=== PATIENT | male | born 1965 | race Caucasian/White ===

== ENCOUNTER 2020-07-29 16:15 | Emergency (ER) | payer OTHER ==
[~2020-07-29] VITALS: Ht 185.4 cm; Wt 80.1 kg
--- NOTE | 2020-07-29 16:25 | PHYS DOC ---
Past History Smoking: Cigarettes Alcohol Use: Heavy Drug Use: Amphetamine, Marijuana Adult General Chief Complaint Chief Complaint: NEURO SYMPTOMS/DEFICITS HPI HPI Patient is a 55-year-old male presenting via local [place] as transfer for stroke. Patient's last known normal was 1510 hrs. he has history of hepatitis C with unknown status, CHF with unknown last ejection fraction and bipolar. Was at convenience store [place] [address] [place] when he had a witnessed episode of "becoming weak". Patient without trauma, known inciting event or ingestion became aphasic with subsequent right upper and lower extremity motor weakness. Patient was subsequently transported to local [place] hospital for evaluation and had comprehensive work-up. Shortened NIH stroke scale 14, CT head negative for hemorrhage, creatinine 1.6, GFR 40, hemoglobin 14, white blood cell count 8.7 and troponin 0.04. Patient arrives and unable to provide history due to ongoing aphasia and right upper and right lower extremity motor weakness. Review of Systems Review of Systems Unable to accept because patient aphasic Allergies Allergies Allergies Coded Allergies Type Severity Reaction Last Updated Verified No Known Drug Allergies 07/29/20 No Physical Exam Physical Exam Constitutional: Poor overall hygiene, no acute distress, is aphasic with no obvious and/or purposeful movements of right upper or lower extremity noted HENT: Normocephalic, atraumatic, bilateral external ears normal, oropharynx dry with poor dentition, no oral exudates, nose normal. Eyes: PERRLA, EOMI, conjunctiva normal, no discharge. Neck: Normal range of motion, no tenderness, supple, no stridor. Cardiovascular: Heart rate regular, sinus rhythm, no murmurs rubs or gallops Lungs & Thorax: No obvious respiratory distress, patient slightly tachypneic with respirations 24 without accessory muscle usage, clear to auscultation bilaterally Abdomen: Bowel sounds normal, soft, no tenderness, no masses, no pulsatile masses. Nonsurgical abdomen, no peritoneal signs Skin: Warm, dry, no erythema, no rash. Back: No tenderness, no CVA tenderness. Extremities: No tenderness, no cyanosis, no clubbing, no edema. No purposeful movements of right upper or lower extremities Neurologic: Alert but aphasic and unable to answer orientation questions, uncooperative with cranial nerve examinations but does have spontaneous extraocular movements, patient has decreased sensory awareness of right upper and right lower extremity, there is no purposeful motor function of right upper and lower extremities, patient has downgoing toes to left lower extremity but right upper word toes of right lower extremity, gross left lower further facial droop and right upper and lower extremity motor and sensory function loss [facility], limited NIH stroke scale remains 14 and unable to perform rest due to patient cooperation Psychologic: Unable to fully assess due to patient presentation Current Patient Data Vital Signs Vital Signs Date Time Temp Pulse Resp B/P (MAP) Pulse Ox O2 Delivery O2 Flow Rate FiO2 07/29/20 16:51 98.1 78 22 135/100 (112) 99 07/29/20 16:52 Room Air Vital Signs Date Time Temp Pulse Resp B/P (MAP) Pulse Ox O2 Delivery O2 Flow Rate FiO2 07/29/20 16:52 98.1 78 26 135/100 (112) 99 Room Air Lab Results Laboratory Tests Test 07/29/20 16:28 07/29/20 16:38 Urine Opiates Screen Neg Urine Methadone Screen Neg Urine Barbiturates Neg Urine Phencyclidine Screen Neg Urine Amphetamine/Methamphetamine Pos Urine Benzodiazepines Screen Neg Urine Cocaine Screen Neg Urine Cannabinoids Screen Pos Urine Ethyl Alcohol Neg White Blood Count 7.8 x10^3/uL Red Blood Count 4.38 x10^6/uL Hemoglobin 13.1 g/dL Hematocrit 40.1 % Mean Corpuscular Volume 92 fL Mean Corpuscular Hemoglobin 30 pg Mean Corpuscular Hemoglobin Concent 33 g/dL Red Cell Distribution Width 14.7 % Platelet Count 264 x10^3/uL Neutrophils (%) (Auto) 71 % Lymphocytes (%) (Auto) 19 % Monocytes (%) (Auto) 7 % Eosinophils (%) (Auto) 2 % Basophils (%) (Auto) 1 % Neutrophils # (Auto) 5.5 x10^3uL Lymphocytes # (Auto) 1.5 x10^3/uL Monocytes # (Auto) 0.6 x10^3/uL Eosinophils # (Auto) 0.1 x10^3/uL Basophils # (Auto) 0.1 x10^3/uL Sodium Level 140 mmol/L Potassium Level 4.9 mmol/L Chloride Level 106 mmol/L Carbon Dioxide Level 24 mmol/L Anion Gap 10 Blood Urea Nitrogen 41 mg/dL Creatinine 1.5 mg/dL Estimated GFR (Cockcroft-Gault) 49.0 BUN/Creatinine Ratio 27 Glucose Level 98 mg/dL Calcium Level 8.9 mg/dL Total Bilirubin 0.6 mg/dL Aspartate Amino Transf (AST/SGOT) 41 U/L Alanine Aminotransferase (ALT/SGPT) 49 U/L Alkaline Phosphatase 105 U/L Troponin I Quantitative 0.231 ng/mL Total Protein 6.4 g/dL Albumin 2.9 g/dL Albumin/Globulin Ratio 0.8 Current Medications Medications (Trade) Dose Ordered Sig/Akila Route PRN Reason Start Time Stop Time Status Last Admin Dose Admin Iohexol (Omnipaque 350 Mg/ml) 100 ml 1X ONCE IV 07/29/20 16:45 07/29/20 16:46 DC Naloxone HCl (Narcan) 0.4 mg STK-MED ONCE .ROUTE 07/29/20 16:40 07/29/20 16:40 DC Alteplase, Recombinant 7.2 ml @ 432 mls/hr 1X ONCE IV 07/29/20 17:00 07/29/20 17:15 DC 07/29/20 17:08 Alteplase, Recombinant 64.9 ml @ 64.9 mls/hr 1X ONCE IV 07/29/20 17:00 07/29/20 17:59 07/29/20 17:07 Sodium Chloride 50 ml @ 0 mls/hr 1X ONCE IV 07/29/20 17:00 07/29/20 17:15 DC Alteplase, Recombinant 100 ml @ As Directed STK-MED ONCE IV 07/29/20 16:59 07/29/20 16:59 DC EKG EKG EKG ordered and interpreted by myself at 1632 hrs. as sinus rhythm at 64 bpm, prolonged QRS at 128 otherwise unremarkable intervals, left axis deviation, T w ave inversion noted in lead aVL otherwise unremarkable, no prior to compare to Repeat EKG ordered and obtained at 1726 hrs. showing sinus rhythm at 73 bpm, prolonged QRS at 128, left axis deviation, T wave inversions in aVL otherwise no STEMI, no ischemic findings Radiology/Procedures Radiology/Procedures Study: XR CHEST 1V Indication: Fluid status. Comparison: None. Findings: The cardiomediastinal silhouette is enlarged. Mildly plethoric central vasculature and prominence of the interstitium. No layering effusion or pneumothorax. No lobar consolidation. Impression: Possible mild interstitial edema but there is no layering effusion. Electronically signed by: ORTIZ CEDEÑO MD (07/29/2020 4:54 PM) [facility] //////////////// CT scan of the head without contrast 08/16/2020 Clinical History: Right-sided weakness. Code stroke. Technique: Unenhanced, contiguous, 5 mm axial sections were obtained through the head. One or more of the following individualized dose reduction techniques were utilized for this study: 1. Automated exposure control. 2. Adjustment of the mA and/or kV according to patient size. 3. Use of iterative reconstruction technique. Findings: The ventricles and sulci are within normal limits in size and configuration. No acute parenchymal abnormality is seen. No extra-axial fluid collection is noted. No skull fracture is seen. Impression: No acute intracranial abnormality is seen. //////////////// Heart Score C/O Chest Pain: N/A HEART Score for Chest Pain: HEART Score for Chest Pain Response (Comments) Value History Moderately Suspicious 1 ECG Nonspecific Repolarizatio 1 Age >45 - < 65 1 Risk Factors 1 or 2 Risk Factors 1 Troponin >1-<3x Normal Limit 1 Total 5 Risk Factors: Risk Factors: DM, Current or recent (<one month) smoker, HTN, HLP, family history of CAD, obesity. Risk Scores: Risk Factors: DM, Current or recent (<one month) smoker, HTN, HLP, family history of CAD, obesity. Course & Med Decision Making Course & Med Decision Making Hemodynamically stable on arrival with unremarkable POC glucose. Patient immediately sent to CT bay and evaluated by myself with NIH being performed and grossly elevated due to patient noncompliance/unable to perform some activities CT head without hemorrhage, CTA showing left ICA occlusion and other concerning abnormalities. There was concern during imaging that patient might be under influence of illicit drugs due to marijuana and a blue pill being found on his person, 0.2 mg Narcan administered without improvement Patient brought back to ER bay for further evaluation. [facility] with history of polysubstance abuse such as cocaine and amphetamines. Patient case reviewed after laboratory work from outlying facility reviewed and imaging results today, decision was made to administer TPA with bolus adm inistration at 1706 hours and subsequent drip started at 1707 hrs. [facility] stroke hotline contacted and case reviewed with on-call neurologist. He agreed need for transfer for higher acuity of care and agreed to work-up so far. [facility] services were arranged, they arrived at our facility at 1727 hrs. with depart time of 1737 Patient's father is the only listed contact on file at [phone], he was contacted and case reviewed. He is aware of patient's condition, diagnosis and transfer to [facility] Critical Care Time This patient required critical care. Due to the fact that the patient required a significant amount of one on one physician - patient contact time, ordering and review of studies, arranging urgent treatment with development of a management plan, evaluation of patients response to treatment with frequent reassessments, and discussions with other providers this patient required 60 minutes of critical care time. Critical care time was indicated due to the inherent instability and/or potential for instability in this patient. The critical care time that is allocated to this patient is above and beyond any time spent on any other billable procedures performed on this patient. Dragon Disclaimer Dragon Disclaimer This electronic medical record was generated, in whole or in part, using a voice recognition dictation system. Departure Departure: Impression: Primary Impression: Ischemic stroke Additional Impressions: Methamphetamine abuse Marijuana abuse Elevated troponin Disposition: 02 [facility] ([facility]) Admitting Physician: Other (dr edwards) Condition: GUARDED Referrals: PCP,NO (PCP) Problem Qualifiers JAZMYNE PINO DO Jul 29, 2020 16:25
[2020-07-29] MEDS ORDERED: NALOXONE 0.4 MG/ML VIAL. ONE (16:40)
--- NOTE | 2020-07-29 16:41 | RAD ---
CT scan of the head without contrast 08/16/2020 Clinical History: Right-sided weakness. Code stroke. Technique: Unenhanced, contiguous, 5 mm axial sections were obtained through the head. One or more of the following individualized dose reduction techniques were utilized for this study: 1. Automated exposure control. 2. Adjustment of the mA and/or kV according to patient size. 3. Use of iterative reconstruction technique. Findings: The ventricles and sulci are within normal limits in size and configuration. No acute paren chymal abnormality is seen. No extra-axial fluid collection is noted. No skull fracture is seen. Impression: No acute intracranial abnormality is seen. This result was discussed with Dr. Mo. FOR INTERNAL CODING PURPOSES RESULT CODE: (C) Electronically signed by: Charlie Felix MD (07/29/2020 4:38 PM) [id number]
[2020-07-29] MEDS ORDERED: IOHEXOL 350 MG/ML 100 ML VIAL. IV ONE (16:45)
--- NOTE | 2020-07-29 16:51 | EKG ---
[address] [address] Test Date: 2020-07-29 Test Time: 16:28:40 Pat Name: KYRIE DENNISON Department: Room: Gender: M Senior Information Developer: JOCELIN : 1965 Requested By: JAZMYNE PINO Order Number: [id number] Reading MD: Measurements Intervals [place] Rate: 64 P: 48 MT: 194 QRS: -70 QRSD: 128 T: 80 QT: 430 QTc: 443 Interpretive Statements SINUS RHYTHM LEFT ATRIAL ABNORMALITY ABNORMAL LEFT AXIS DEVIATION NON SPECIFIC INTRAVENTRICULAR BLOCK ABNORMAL ECG RI6.02 No previous ECG available for comparison
--- NOTE | 2020-07-29 16:56 | RAD ---
Study: XR CHEST 1V Indication: Fluid status. Comparison: None. Findings: The cardiomediastinal silhouette is enlarged. Mildly plethoric central vasculature and prominence of the interstitium. No layering effusion or pneumothorax. No lobar consolidation. Impression: Possible mild interstitial edema but there is no layering effusion. Electronically signed by: ORTIZ CEDEÑO MD (07/29/2020 4:54 PM) [facility]
[2020-07-29] MEDS ORDERED: ALTEPLASE 100 MG IV ONE (16:59)
[2020-07-29] MEDS ORDERED: IV NORMAL SALINE 50ML 50 ML IV ONE (17:00)
[2020-07-29] MEDS ORDERED: ALTEPLASE IV ONE ×2 (17:00)
[2020-07-29 17:10] LABS: BASO # 0.1 x10^3/uL (0.0-0.2); BASO % 1 % (0-3); EOS # 0.1 x10^3/uL (0.0-0.7); EOS % 2 % (0-3); HEMATOCRIT 40.1 % (39.0-53.0); HEMOGLOBIN 13.1 g/dL (13.0-17.5); LYMPH # 1.5 x10^3/uL (1.0-4.8); LYMPH % 19 % (24-48); MEAN CORPUSCULAR HEMOGLOBIN 30 pg (25-35); MEAN CORPUSCULAR HGB CONC 33 g/dL (31-37); MEAN CORPUSCULAR VOLUME 92 fL (79-100); MONO # 0.6 x10^3/uL (0.0-1.1); MONO % 7 % (0-9); NEUT # 5.5 x10^3uL (1.8-7.7); NEUT % 71 % (31-73); PLATELET COUNT 264 x10^3/uL (140-400); RED BLOOD COUNT 4.38 x10^6/uL (4.30-5.70); RED CELL DISTRIBUTION WIDTH 14.7 % (11.5-14.5); WHITE BLOOD COUNT 7.8 x10^3/uL (4.0-11.0)
[2020-07-29 17:11] LABS: CALCIUM 8.9 mg/dL (8.5-10.1); CREATININE 1.5 mg/dL (0.7-1.3); POTASSIUM 4.9 mmol/L (3.5-5.1)
[2020-07-29 17:13] LABS: BARBITURATES NEG (NEG); BENZODIAZEPINES NEG (NEG); CANNABINOIDS POS (NEG); COCAINE NEG (NEG); METHADONE NEG (NEG); OPIATES NEG (NEG); PHENCYCLIDINE NEG (NEG)
--- NOTE | 2020-07-29 17:13 | RAD ---
CTA of the head and neck with contrast 07/29/2020 Clinical history: Right-sided weakness. Technique: After the intravenous administration of 75 cc of Omnipaque 350, contiguous, 0.625 mm axial sections were obtained through the upper chest, neck and head. Multiplanar 3-D MIP and volume render ed 3-D reconstructed images were obtained. One or more of the following individualized dose reduction techniques were utilized for this study: 1. Automated exposure control. 2. Adjustment of the mA and/or kV according to patient size. 3. Use of iterative reconstruction technique. Findings: Comparison is made to patient's CT scan of the head performed earlier today. Mild scattered atherosclerotic plaque formation is seen involving the thoracic aortic arch and its br anches. There is a common origin of the brachiocephalic and left common carotid artery from the thora cic aortic arch. This is a normal variation. This origin is patent. The origin of the left subclavian artery is patent. The origin of the right common carotid artery and both vertebral arteries are vital nt. Mild atheromatous/atherosclerotic plaque formation is seen involving both carotid bifurcations. The l eft internal carotid artery is occluded 1.6 cm from its origin. The right internal carotid artery is patent. No hemodynamically significant stenosis is seen. The vertebral arteries are codominant. Both vertebral arteries demonstrate normal antegrade flow. No area stenosis or occlusion is seen. Intracranially, scattered atherosclerotic plaque formation is seen involving the cavernous portions o f both internal carotid arteries. The petrous, cavernous and supraclinoid portions of the left market research intern al carotid artery are occluded. The intracranial right internal carotid artery is patent. No area of stenosis is seen. The basilar artery is patent. Opacification of the left anterior cerebral artery wi th contrast via collateral flow across the anterior communicating artery is noted. The M1 segment of the left middle cerebral artery is occluded. Contrast opacification of the M2 and M3 segments of the left middle cerebral artery via collateral arterial flow is noted. The right middle cerebral artery a nd its branches, the anterior cerebral arteries and posterior cerebral arteries are patent. No intrac ranial aneurysm is seen. The major dural venous sinuses are patent. No area of abnormal contrast enhancement is seen. No acute soft tissue abnormality is seen involving the neck. Degenerative changes are seen involving the unco vertebral and facet joints throughout the cervical disc spaces. The patient is is edentulous. A 2.2 c m enlarged lymph node is seen to the left of the thoracic aortic arch which is incompletely visualize d on this study. 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 This extends throughout the neck, throughout its intracranial course and extends to involve the M1 segment of the left middle ce rebral artery. Stenosis calculation for CTA are based on measurement of the distal internal carotid artery diameter in accordance with the NASCET methodology. This result was discussed with Dr. Mo at 1445 hours. FOR INTERNAL CODING PURPOSES RESULT CODE: (C) Electronically signed by: Charlie Felix MD (07/29/2020 5:11 PM) [id number]
[2020-07-29 17:15] LABS: AMPHETAMINE/METHAMPHETAMINE POS (NEG)
[2020-07-29 17:16] LABS: ALBUMIN 2.9 g/dL (3.4-5.0); ALBUMIN/GLOBULIN RATIO 0.8 (1.0-1.7); TOTAL BILIRUBIN 0.6 mg/dL (0.2-1.0); TOTAL PROTEIN 6.4 g/dL (6.4-8.2)
[2020-07-29 17:25] VITALS: BP 115/73
[2020-07-29 17:41] LABS: BILIRUBIN,URINE NEG (NEG); CLARITY,URINE CLEAR; COLOR,URINE YELLOW; GLUCOSE,URINE NEG (NEG); NITRITE,URINE NEG (NEG)
[2020-07-29 17:44] LABS: BACTERIA,URINE 0 /HPF (0-FEW); RBC,URINE RARE /HPF (0-2); SQUAMOUS EPITHELIAL CELL,UR OCC /LPF; WBC,URINE OCC /HPF (0-4)
[2020-07-29 17:46] LABS: ACETAMIN < 2.0 mcg/mL (10-30); ETHANOL < 10 mg/dL (0-10); SALIC < 2.8 mg/dL (2.8-20.0)
--- NOTE | 2020-07-29 17:58 | EKG ---
[address] [address] Test Date: 2020-07-29 Test Time: 17:25:07 Pat Name: KYRIE DENNISON Department: Room: Gender: M Filter Changing Technician: JOCELIN : 1965 Requested By: JAZMYNE PINO Order Number: [id number] Reading MD: Measurements Intervals [place] Rate: 63 P: 52 [place]: 192 QRS: -75 QRSD: 128 T: 86 QT: 444 QTc: 458 Interpretive Statements SINUS RHYTHM LEFT ATRIAL ABNORMALITY ABNORMAL LEFT AXIS DEVIATION NON SPECIFIC INTRAVENTRICULAR BLOCK ABNORMAL ECG RI6.02 No previous ECG available for comparison
== END 2020-07-29 17:40 | disposition short-term general hospital (02) ==
LOC: ER 16:15
DX: I63.9 Cerebral infarction, unspecified (principal); R53.1 Weakness; R47.01 Aphasia; R77.8 Other specified abnormalities of plasma proteins; F15.10 Other stimulant abuse, uncomplicated; F12.10 Cannabis abuse, uncomplicated; F17.210 Nicotine dependence, cigarettes, uncomplicated; F10.20 Alcohol dependence, uncomplicated; Y90.0 Blood alcohol level of less than 20 mg/100 ml
CPT/HCPCS: 36415; 37195; 51702; 70450; 70496; 70498; 71045; 80053; 80307; 80329; 81001; 84484; 85025; 93005; 99291; G0480; J2997; Q9967